=== PATIENT | female | born 1995 | race Caucasian/White ===

== ENCOUNTER 2022-02-13 19:18 | Emergency (ER) | payer OTHER ==
[2022-02-13] MEDS ORDERED: Ketorolac Tromethamine 30 MG/ML VIAL ONE (21:25)
== END 2022-02-13 21:30 | disposition home or self-care (01) ==
LOC: CSHERS 19:18
DX: S16.1XXA Strain of muscle, fascia and tendon at neck level, initial encounter (principal); F17.210 Nicotine dependence, cigarettes, uncomplicated; V49.19XA Passenger injured in collision with other motor vehicles in nontraffic accident, initial encounter
CPT/HCPCS: 96372; 99283; J1885